=== PATIENT | male | born 1945 | race Caucasian/White ===

== ENCOUNTER 2017-11-01 06:38 | Day surgery (SDC) | payer OTHER, BC ==
[2017-11-01] MEDS ORDERED: LIDOCAINE 2% (SDV) 5 ML INJ (07:40)
[2017-11-01] MEDS ORDERED: PROPOFOL 40 ML (07:40)
[2017-11-01] MEDS ORDERED: MIDAZOLAM 1 MG/ML 2 ML INJ (07:40)
== END 2017-11-01 11:06 | disposition home or self-care (01) ==
LOC: GIL 06:38
DX: D12.3 Benign neoplasm of transverse colon (principal); K62.1 Rectal polyp; K29.50 Unspecified chronic gastritis without bleeding; K57.90 Diverticulosis of intestine, part unspecified, without perforation or abscess without bleeding; E11.9 Type 2 diabetes mellitus without complications; I25.10 Atherosclerotic heart disease of native coronary artery without angina pectoris; I25.2 Old myocardial infarction
CPT/HCPCS: 43239; 82962; 88305; 88312